=== PATIENT | male | born 1990 ===

== ENCOUNTER 2023-12-01 18:36 | Emergency (ER) | payer OTHER ==
[2023-12-01] MEDS: cefTRIAXone 1 GM Vial IM ONE (19:41)
[2023-12-01] MEDS: Bupivacaine 0.5% 10 ML SDV INJECT ONE (19:42)
[2023-12-01] MEDS: Take Home: Cefuroxime 500 MG Tab, 6 Tab Pack PO ONE (19:45)
[2023-12-01] MEDS: Take Home: metroNIDAZOLE 500 MG Tab, 6 Tab Pack PO ONE (19:45)
== END 2023-12-01 20:00 | disposition home or self-care (01) ==
LOC: LL.ED 18:36
DX: K04.7 Periapical abscess without sinus (principal); J45.909 Unspecified asthma, uncomplicated; K00.7 Teething syndrome; Z79.899 Other long term (current) drug therapy; Z88.5 Allergy status to narcotic agent
CPT/HCPCS: 64400; 96372; 99282-25; A9270-GY; J0665; J0696

== ENCOUNTER 2024-01-28 21:18 | Emergency (ER) | payer SELFPAY ==
[2024-01-28] MEDS: Amoxicillin/Clavulanate K 875-125 MG Tab PO ONE (21:57)
[2024-01-28] MEDS: Ketorolac 30 MG/ML SDV IM ONE (21:57)
[2024-01-28] MEDS: traMADol 50 MG Tab PO ONE (21:57)
== END 2024-01-28 22:10 | disposition home or self-care (01) ==
LOC: LL.ED 21:18
DX: K08.89 Other specified disorders of teeth and supporting structures (principal); J45.909 Unspecified asthma, uncomplicated; Z88.5 Allergy status to narcotic agent; Z79.899 Other long term (current) drug therapy; Z90.49 Acquired absence of other specified parts of digestive tract
CPT/HCPCS: 99282; A9270-GY; J1885

== ENCOUNTER 2024-10-13 20:48 | Emergency (ER) | payer SELFPAY ==
[2024-10-13] MEDS: Amoxicillin/Clavulanate K 875-125 MG Tab PO ONE (21:31)
[2024-10-13] MEDS: Take Home: Ketorolac 10 MG Tab, 4 Tab Pack PO ONE (21:35)
== END 2024-10-13 21:44 | disposition home or self-care (01) ==
LOC: LL.ED 20:48
DX: K04.7 Periapical abscess without sinus (principal); J45.909 Unspecified asthma, uncomplicated; F17.210 Nicotine dependence, cigarettes, uncomplicated; Z90.49 Acquired absence of other specified parts of digestive tract; Z88.5 Allergy status to narcotic agent; Z79.51 Long term (current) use of inhaled steroids; Z79.899 Other long term (current) drug therapy
CPT/HCPCS: 99282; A9270; 99283